=== PATIENT | female | born 1960 | race Caucasian/White ===

== ENCOUNTER 2021-01-14 13:18 | Outpatient (CLI) | payer OTHER | END 2021-01-14 13:19 | disposition home or self-care (01) | LOC: CSHRAD 13:18 | PROVIDERS: ATTEND Family Medicine | DX: R07.81 Pleurodynia (principal) | CPT/HCPCS: 71046 ==

== ENCOUNTER 2022-01-18 08:45 | Emergency (ER) | payer SELFPAY ==
[2022-01-18 09:26] LABS: #Basophils 0.1 10x3/uL (0.0-0.2); #Monocytes 1.4 10x3/uL (0.0-1.1); #Neutrophils 10.3 10x3/uL (1.5-8.4); %Basophils 0.4 % (0.0-2.0); %Eosinophils 0.3 % (0.0-6.0); %Lymphocytes 11.9 % (18.0-47.0); %Monocytes 10.4 % (0.0-10.0); %Neutrophils 76.6 % (40.0-75.0); Mean Corpuscular HGB CONC 32.5 g/dL (32.0-36.0); Mean Corpuscular Hemoglobin 30.6 pg (27.0-33.0); Mean Corpuscular Volume 94.1 fl (81.6-98.3); Mean Platelet Volume 9.2 fl (7.4-10.4); Platelet Count 223 10x3/uL (150-450); RBC Distribution Width 14.8 % (11.5-14.5); Red Blood Cell (RBC) Count 4.58 10x6/uL (3.90-5.03); White Blood Cell (WBC) Count 13.4 10x3/uL (3.5-10.5)
[2022-01-18 09:38] LABS: ALT (SGPT) 39 U/L (8-55); AST (SGOT) 86 U/L (5-34); Albumin 3.3 g/dL (3.4-4.8); Alkaline Phosphatase 286 U/L (40-110); Anion Gap 18 mmol/L (10-20); BUN (Urea Nitrogen) 7 mg/dL (9.8-20.1); Bilirubin, Total 3.6 mg/dL (0.2-1.2); CK (CPK) 19 U/L (29-168); Calc. Creatinine Clearance 0 mL/min (70-130); Calcium 9.8 mg/dL (7.8-10.44); Carbon Dioxide 23 mmol/L (23-31); Chloride 103 mmol/L (98-107); Globulin 4.2 g/dL (2.4-3.5); Glucose 129 mg/dL (80-115); Magnesium 1.8 mg/dL (1.6-2.6); Potassium 3.5 mmol/L (3.5-5.1); Protein, Total 7.5 g/dL (5.8-8.1); Sodium 140 mmol/L (136-145)
[2022-01-18] MEDS ORDERED: Enoxaparin Sodium 80 MG/0.8 ML SYRINGE ONE (10:39)
[2022-01-18 10:52] LABS: Bilirubin 1+ (Negative); Blood, Urine 10 (Negative); Clarity Slightly Cloudy (Clear); Glucose, Urine (Dipstick) Normal (Negative); Ketone, Urine 5 mg/dL (Negative); Leukocyte 100 (Negative); Nitrite Negative (Negative); Protein, Urine (Dipstick) 30 mg/dl (Neg-Trace)
[2022-01-18 10:58] LABS: Bacteria/HPF 1+ HPF (None Seen); Mucous/LPF 2+ LPF (<2+)
[2022-01-18] MEDS ORDERED: Ondansetron PF 4 MG/2 ML Vial IVP PRN (15:25)
[2022-01-18] MEDS ORDERED: Acetaminophen 325 MG TAB PO PRN (15:26)
[2022-01-18] MEDS ORDERED: Ondansetron ODT 4 MG TAB PO PRN (15:27)
[2022-01-18] MEDS ORDERED: Iopamidol 370 76% 100 ML VIAL ONE (15:47)
== END 2022-01-18 14:26 | disposition short-term general hospital (02) ==
LOC: CSHERS 08:45
DX: R00.0 Tachycardia, unspecified (principal); R18.8 Other ascites; I82.412 Acute embolism and thrombosis of left femoral vein; I82.432 Acute embolism and thrombosis of left popliteal vein; I82.442 Acute embolism and thrombosis of left tibial vein; C22.9 Malignant neoplasm of liver, not specified as primary or secondary; C78.7 Secondary malignant neoplasm of liver and intrahepatic bile duct; I10 Essential (primary) hypertension
CPT/HCPCS: 71045; 71275; 74177; 80053; 81003; 81015; 82550; 83735; 84443; 84484; 85025; 85379; 93005; J1650; Q9967

== ENCOUNTER 2022-04-14 19:09 | Inpatient (IN) | payer MEDICAID, OTHER ==
[2022-04-14 19:56] LABS: ALT (SGPT) 50 U/L (8-55); AST (SGOT) 76 U/L (5-34); Albumin 2.8 g/dL (3.4-4.8); Alkaline Phosphatase 185 U/L (40-110); Anion Gap 16 mmol/L (10-20); BUN (Urea Nitrogen) 19 mg/dL (9.8-20.1); Bilirubin, Total 4.3 mg/dL (0.2-1.2); Calc. Creatinine Clearance 0 mL/min (70-130); Carbon Dioxide 24 mmol/L (23-31); Chloride 99 mmol/L (98-107); Estimated GFR 88; Globulin 3.8 g/dL (2.4-3.5); Glucose 109 mg/dL (80-115); Lipase 10 U/L (8-78); Magnesium 1.2 mg/dL (1.6-2.6); Protein, Total 6.6 g/dL (5.8-8.1); Sodium 135 mmol/L (136-145)
[2022-04-14] MEDS ORDERED: Cefepime 2 GM VIAL ONE (20:02)
[2022-04-14 20:08] LABS: SARS-CoV-2 NAA Rapid Test DETECTED (NotDetected)
[2022-04-14] MEDS ORDERED: Lidocaine 1% (PF) 30 ML VIAL ONE (20:09)
[2022-04-14 20:10] LABS: Platelet Count 94 10x3/uL (150-450)
[2022-04-14 20:12] LABS: Hemoglobin 9.9 g/dL (12.0-15.5); Mean Corpuscular HGB CONC 33.9 g/dL (32.0-36.0); Mean Corpuscular Hemoglobin 33.2 pg (27.0-33.0); Mean Platelet Volume 9.9 fl (7.4-10.4); RBC Distribution Width 18.9 % (11.5-14.5); Red Blood Cell (RBC) Count 2.98 10x6/uL (3.90-5.03); White Blood Cell (WBC) Count 3.4 10x3/uL (3.5-10.5)
[2022-04-14 20:14] LABS: MDiff Complete? YES
[2022-04-14 20:21] LABS: Band 3 % (5-11); Lymphocytes 12 % (21-51); Monocytes 8 % (0-10); Neutrophil 77 % (42-75)
[2022-04-14 20:23] LABS: Anisocytosis SLIGHT = 6-15 cells (100X) (0-5/hpf); Hypochromia SLIGHT = 6-15 cells (100X) (0-5/hpf); Macrocytosis SLIGHT = 6-15 cells (100X) (0-5/hpf); Poikilocytosis SLIGHT = 6-15 cells (100X) (0-5/hpf)
[2022-04-14 20:24] LABS: Platelet Morphology Comment Appears Decreased
[2022-04-14 21:27] LABS: BF Color Red; Body Fluid Source Ascites Body Fluid; Clarity Hazy (Clear); Tube # EDTA
[2022-04-14 21:31] LABS: BF Segmented Neutrophils 69 %; Cell Count Non Hematic 21 %; Lymphocytes 10 %
[2022-04-14] MEDS ORDERED: Dexamethasone 10 MG/ML VIAL ONE (22:16)
[2022-04-14] MEDS ORDERED: Enoxaparin Sodium 80 MG/0.8 ML SYRINGE ONE (22:16)
[2022-04-14 22:28] LABS: Lactic Acid 2.9 mmol/L (0.5-2.2)
[2022-04-14] MEDS ORDERED: Lorazepam 2 MG/ML VIAL ONE (23:05)
[2022-04-14] MEDS ORDERED: Ketorolac Tromethamine 30 MG/ML VIAL ONE (23:34)
[2022-04-14] MEDS ORDERED: Senokot S 8.6-50 MG TAB PO PRN (23:55)
[2022-04-14] MEDS ORDERED: Acetaminophen 325 MG TAB PO PRN (23:55)
[2022-04-14] MEDS ORDERED: Ondansetron PF 4 MG/2 ML Vial IVP PRN (23:55)
[2022-04-14] MEDS ORDERED: Calcium Carbonate 500 MG ChewTAB PO PRN (23:55)
[2022-04-15] MEDS ORDERED: Ventolin HFA Inhaler 60 PUFF INHALER INH PRN (00:01)
[2022-04-15] MEDS ORDERED: [UNRECOGNIZED DRUG - REMARK] IVPB PRN (00:04)
[2022-04-15] MEDS ORDERED: Furosemide 20 MG/2 ML VIAL SLOW IVP SCH (00:15)
[2022-04-15] MEDS ORDERED: Magnesium 2 GM/50 ML(in water) 2 GM in Premix Bag 1 BAG IVPB SCH ×2 (00:15→08:15)
[2022-04-15 00:59] LABS: CKMB 2.4 ng/mL (0-6.6)
[2022-04-15 02:51] VITALS: BMI 30.1
[2022-04-15 03:31] LABS: Bilirubin 3+ (Negative); Blood, Urine 250 (Negative); Clarity Cloudy (Clear); Glucose, Urine (Dipstick) 50 mg/dL (Negative); Ketone, Urine 5 mg/dL (Negative); Leukocyte 25 (Negative); Nitrite Positive (Negative); Protein, Urine (Dipstick) 100 mg/dl (Neg-Trace); Specific Gravity, Urine 1.025 (1.002-1.036)
[2022-04-15 03:41] LABS: Bacteria/HPF 3+ HPF (None Seen); RBC/HPF Greater than 50 HPF (0-3); Squamous Epithelial 0-3 HPF (0-3)
[2022-04-15 03:42] LABS: Legionella Urinary Ag Negative (Negative); Strep pneumo Urine Ag NEGATIVE (NEGATIVE)
[2022-04-15 04:42] LABS: Hemoglobin 8.7 g/dL (12.0-15.5); Mean Corpuscular HGB CONC 33.5 g/dL (32.0-36.0); Mean Corpuscular Hemoglobin 33.6 pg (27.0-33.0); Mean Corpuscular Volume 100.4 fl (81.6-98.3); Mean Platelet Volume 9.6 fl (7.4-10.4); Platelet Count 44 10x3/uL (150-450); RBC Distribution Width 18.8 % (11.5-14.5); Red Blood Cell (RBC) Count 2.59 10x6/uL (3.90-5.03); White Blood Cell (WBC) Count 3.8 10x3/uL (3.5-10.5)
[2022-04-15 04:43] LABS: Lactic Acid 1.8 mmol/L (0.5-2.2)
[2022-04-15 04:51] LABS: ALT (SGPT) 40 U/L (8-55); AST (SGOT) 57 U/L (5-34); Albumin 2.4 g/dL (3.4-4.8); Alkaline Phosphatase 147 U/L (40-110); Anion Gap 14 mmol/L (10-20); BUN (Urea Nitrogen) 21 mg/dL (9.8-20.1); Bilirubin, Total 3.5 mg/dL (0.2-1.2); CRP (Inflammatory) 7.79 mg/dL (= or < 0.5); Calc. Creatinine Clearance 107 mL/min (70-130); Calcium 8.4 mg/dL (7.8-10.44); Carbon Dioxide 25 mmol/L (23-31); Cardiac Risk 12.8 (Less than 4.5); Chloride 101 mmol/L (98-107); Cholesterol 179 mg/dl (< 200 Desired); Estimated GFR 86; Globulin 3.5 g/dL (2.4-3.5); Glucose 129 mg/dL (80-115); HDL Cholesterol 14 mg/dL (>60 Neg Risk); LDL Cholesterol, Calculated 152 mg/dL; Magnesium 1.6 mg/dL (1.6-2.6); Protein, Total 5.9 g/dL (5.8-8.1); Sodium 136 mmol/L (136-145); Triglycerides 65 mg/dL (Less than 150)
[2022-04-15 05:14] LABS: CKMB 3.4 ng/mL (0-6.6)
[2022-04-15 06:04] LABS: MDiff Complete? YES
[2022-04-15 06:19] LABS: Band 4 % (5-11); Lymphocytes 6 % (21-51); Monocytes 5 % (0-10); Neutrophil 85 % (42-75)
[2022-04-15 06:20] LABS: Anisocytosis SLIGHT = 6-15 cells (100X) (0-5/hpf); Hypochromia SLIGHT = 6-15 cells (100X) (0-5/hpf); Platelet Morphology Comment Appears Decreased; Spherocytes SLIGHT = 1-5 cells (100X) (None Seen)
[2022-04-15] MEDS ORDERED: Enoxaparin Sodium 80 MG/0.8 ML SYRINGE SC SCH (09:00)
[2022-04-15] MEDS: Dexamethasone 4 mg/ml Vial SLOW IVP SCH (09:21)
[2022-04-15] MEDS: Pantoprazole 40 MG VIAL IVP SCH ×2 (09:21→20:10)
[2022-04-15] MEDS: Furosemide 40 MG TAB PO SCH (09:21)
[2022-04-15] MEDS: Spironolactone 25 MG TAB PO SCH (09:21)
[2022-04-15] MEDS: Cefepime 1 GM in Sodium Chloride 0.9% 100 ML IVPB SCH ×2 (09:23→20:10)
[2022-04-15] MEDS ORDERED: Iopamidol 370 76% 100 ML VIAL ONE (13:21)
[2022-04-15] MEDS: Propranolol 40 MG TAB PO SCH ×2 (16:42→20:10)
[2022-04-16] MEDS: Furosemide 40 MG TAB PO SCH (08:00)
[2022-04-16] MEDS: Propranolol 40 MG TAB PO SCH ×2 (08:00→20:44)
[2022-04-16] MEDS: Spironolactone 25 MG TAB PO SCH (08:01)
[2022-04-16] MEDS: Pantoprazole 40 MG VIAL IVP SCH ×2 (08:01→20:44)
[2022-04-16] MEDS: Cefepime 1 GM in Sodium Chloride 0.9% 100 ML IVPB SCH (08:01)
[2022-04-16] MEDS: Dexamethasone 4 mg/ml Vial SLOW IVP SCH (08:01)
[2022-04-16 08:39] LABS: Hemoglobin 10.4 g/dL (12.0-15.5); Mean Corpuscular HGB CONC 34.7 g/dL (32.0-36.0); Mean Corpuscular Hemoglobin 34.2 pg (27.0-33.0); Mean Corpuscular Volume 98.7 fl (81.6-98.3); Mean Platelet Volume 10.9 fl (7.4-10.4); Platelet Count 66 10x3/uL (150-450); Red Blood Cell (RBC) Count 3.04 10x6/uL (3.90-5.03); White Blood Cell (WBC) Count 29.8 10x3/uL (3.5-10.5)
[2022-04-16 08:44] LABS: MDiff Complete? YES; Manual Diff?? YES
[2022-04-16 08:52] LABS: Anion Gap 15 mmol/L (10-20); BUN (Urea Nitrogen) 27 mg/dL (9.8-20.1); Calc. Creatinine Clearance 98 mL/min (70-130); Carbon Dioxide 25 mmol/L (23-31); Chloride 100 mmol/L (98-107); Estimated GFR 79; Glucose 125 mg/dL (80-115); Magnesium 1.9 mg/dL (1.6-2.6); Sodium 136 mmol/L (136-145)
[2022-04-16 09:04] LABS: Band 29 % (5-11); Lymphocytes 2 % (21-51); Monocytes 3 % (0-10); Neutrophil 66 % (42-75)
[2022-04-16 09:05] LABS: Platelet Morphology Comment Appears Decreased
[2022-04-16 09:06] LABS: Anisocytosis SLIGHT = 6-15 cells (100X) (0-5/hpf); Dohle Bodies SLIGHT; Hypochromia SLIGHT = 6-15 cells (100X) (0-5/hpf); Macrocytosis SLIGHT = 6-15 cells (100X) (0-5/hpf); Microcytosis SLIGHT = 6-15 cells (100X) (0-5/hpf); Target Cells SLIGHT = 2-5 cells (100X) (0-1/hpf); Toxic Granulation SLIGHT; Vacuoles SLIGHT
[2022-04-16] MEDS ORDERED: Sodium Bicarbonate 2.5 MEQ/5 ML VIAL ONE (11:11)
[2022-04-16] MEDS ORDERED: Lidocaine 1% PF 5 ML VIAL ONE (11:11)
[2022-04-16] MEDS: cefTRIAXone\\ROCEPHIN 1 GM in Sodium Chloride 0.9% 100 ML IVPB SCH (14:42)
[2022-04-16] MEDS: Azithromycin 500 MG in Sodium Chloride 0.9% 250 ML 250 ML IVPB SCH (15:13)
[2022-04-16] MEDS: Cholecalciferol 1,000 UNITS (25 MCG) TAB PO SCH (20:44)
[2022-04-16] MEDS ORDERED: traZODone HCl 150 MG TAB PO SCH (21:00)
[2022-04-17 05:01] LABS: Anion Gap 13 mmol/L (10-20); BUN (Urea Nitrogen) 28 mg/dL (9.8-20.1); Calc. Creatinine Clearance 107 mL/min (70-130); Calcium 8.6 mg/dL (7.8-10.44); Carbon Dioxide 25 mmol/L (23-31); Chloride 102 mmol/L (98-107); Estimated GFR 88; Glucose 131 mg/dL (80-115); Magnesium 1.7 mg/dL (1.6-2.6); Potassium 3.9 mmol/L (3.5-5.1); Sodium 136 mmol/L (136-145)
[2022-04-17 05:52] LABS: Hemoglobin 8.7 g/dL (12.0-15.5); Mean Corpuscular HGB CONC 33.7 g/dL (32.0-36.0); Mean Corpuscular Hemoglobin 33.1 pg (27.0-33.0); Mean Corpuscular Volume 98.1 fl (81.6-98.3); Mean Platelet Volume 11.4 fl (7.4-10.4); Platelet Count 30 10x3/uL (150-450); RBC Distribution Width 18.7 % (11.5-14.5); Red Blood Cell (RBC) Count 2.63 10x6/uL (3.90-5.03); White Blood Cell (WBC) Count 15.3 10x3/uL (3.5-10.5)
[2022-04-17 06:28] LABS: MDiff Complete? YES
[2022-04-17 07:01] LABS: Band 10 % (5-11); Lymphocytes 3 % (21-51); Monocytes 6 % (0-10); Neutrophil 81 % (42-75)
[2022-04-17 07:02] LABS: Platelet Morphology Comment Appears Decreased; RBC Morphology Normal
[2022-04-17] MEDS: Propranolol 40 MG TAB PO SCH ×2 (08:12→21:39)
[2022-04-17] MEDS: Spironolactone 25 MG TAB PO SCH (08:12)
[2022-04-17] MEDS: Dexamethasone 4 mg/ml Vial SLOW IVP SCH (08:13)
[2022-04-17] MEDS: Zinc Sulfate 220 MG CAP PO SCH (08:13)
[2022-04-17] MEDS: Furosemide 40 MG TAB PO SCH (08:13)
[2022-04-17] MEDS: Ascorbic Acid 500 mg Chewable Tablet PO SCH (08:13)
[2022-04-17] MEDS: Pantoprazole 40 MG VIAL IVP SCH ×2 (08:15→21:39)
[2022-04-17] MEDS: cefTRIAXone\\ROCEPHIN 1 GM in Sodium Chloride 0.9% 100 ML IVPB SCH (13:50)
[2022-04-17] MEDS: Azithromycin 500 MG in Sodium Chloride 0.9% 250 ML 250 ML IVPB SCH (15:13)
[2022-04-17] MEDS: Cholecalciferol 1,000 UNITS (25 MCG) TAB PO SCH (21:39)
[2022-04-17] MEDS: Melatonin 3 MG TAB PO PRN (21:39)
[2022-04-18] MEDS ORDERED: Guaifenesin DM 100-10/5 ML UDCUP ONE (09:30)
[2022-04-18] MEDS: Dexamethasone 4 mg/ml Vial SLOW IVP SCH (09:31)
[2022-04-18] MEDS: Pantoprazole 40 MG VIAL IVP SCH ×2 (09:31→21:14)
[2022-04-18] MEDS: Spironolactone 25 MG TAB PO SCH (09:32)
[2022-04-18] MEDS: Ascorbic Acid 500 mg Chewable Tablet PO SCH (09:32)
[2022-04-18] MEDS: Zinc Sulfate 220 MG CAP PO SCH (09:32)
[2022-04-18] MEDS: Propranolol 40 MG TAB PO SCH ×2 (09:32→21:14)
[2022-04-18] MEDS: Furosemide 40 MG TAB PO SCH (09:32)
[2022-04-18] MEDS: Guaifenesin DM 100-10/5 ML UDCUP PO PRN (09:38)
[2022-04-18] MEDS: cefTRIAXone\\ROCEPHIN 1 GM in Sodium Chloride 0.9% 100 ML IVPB SCH (14:02)
[2022-04-18] MEDS: Azithromycin 500 MG in Sodium Chloride 0.9% 250 ML 250 ML IVPB SCH (14:03)
[2022-04-18] MEDS: Melatonin 3 MG TAB PO PRN (21:14)
[2022-04-18] MEDS: Cholecalciferol 1,000 UNITS (25 MCG) TAB PO SCH (21:14)
[2022-04-19 04:52] LABS: #Neutrophils 9.1 10x3/uL (1.5-8.4); %Basophils 0.1 % (0.0-2.0); %Lymphocytes 6.6 % (18.0-47.0); %Monocytes 8.9 % (0.0-10.0); %Neutrophils 83.4 % (40.0-75.0); Anion Gap 14 mmol/L (10-20); BUN (Urea Nitrogen) 33 mg/dL (9.8-20.1); Calc. Creatinine Clearance 112 mL/min (70-130); Calcium 8.7 mg/dL (7.8-10.44); Carbon Dioxide 25 mmol/L (23-31); Chloride 103 mmol/L (98-107); Estimated GFR 95; Glucose 113 mg/dL (80-115); Hemoglobin 9.7 g/dL (12.0-15.5); Mean Corpuscular HGB CONC 34.2 g/dL (32.0-36.0); Mean Corpuscular Hemoglobin 33.2 pg (27.0-33.0); Mean Corpuscular Volume 97.3 fl (81.6-98.3); Mean Platelet Volume 11.3 fl (7.4-10.4); Potassium 3.7 mmol/L (3.5-5.1); RBC Distribution Width 18.9 % (11.5-14.5); Red Blood Cell (RBC) Count 2.92 10x6/uL (3.90-5.03); Sodium 138 mmol/L (136-145); White Blood Cell (WBC) Count 10.9 10x3/uL (3.5-10.5)
[2022-04-19 04:53] LABS: Platelet Count 52 10x3/uL (150-450)
[2022-04-19 05:43] LABS: Band 3 % (5-11); Lymphocytes 5 % (21-51); Monocytes 6 % (0-10)
[2022-04-19 05:45] LABS: Neutrophil 86 % (42-75); Platelet Morphology Comment Appears Decreased; RBC Morphology Normal
[2022-04-19] MEDS: Dexamethasone 4 mg/ml Vial SLOW IVP SCH (09:32)
[2022-04-19] MEDS: Spironolactone 25 MG TAB PO SCH (09:33)
[2022-04-19] MEDS: Zinc Sulfate 220 MG CAP PO SCH (09:33)
[2022-04-19] MEDS: Ascorbic Acid 500 mg Chewable Tablet PO SCH (09:33)
[2022-04-19] MEDS: Pantoprazole 40 MG VIAL IVP SCH ×2 (09:33→20:45)
[2022-04-19] MEDS: Furosemide 40 MG TAB PO SCH (09:33)
[2022-04-19] MEDS: Propranolol 40 MG TAB PO SCH ×2 (09:33→20:47)
[2022-04-19] MEDS: cefTRIAXone\\ROCEPHIN 1 GM in Sodium Chloride 0.9% 100 ML IVPB SCH (14:43)
[2022-04-19] MEDS: Azithromycin 500 MG in Sodium Chloride 0.9% 250 ML 250 ML IVPB SCH (16:32)
[2022-04-19] MEDS: Cholecalciferol 1,000 UNITS (25 MCG) TAB PO SCH (20:47)
[2022-04-19] MEDS: Melatonin 3 MG TAB PO PRN (20:47)
[2022-04-20 06:13] LABS: Anion Gap 14 mmol/L (10-20); BUN (Urea Nitrogen) 34 mg/dL (9.8-20.1); Calc. Creatinine Clearance 107 mL/min (70-130); Calcium 8.6 mg/dL (7.8-10.44); Carbon Dioxide 23 mmol/L (23-31); Chloride 104 mmol/L (98-107); Estimated GFR 91; Glucose 140 mg/dL (80-115); Potassium 4.4 mmol/L (3.5-5.1); Sodium 137 mmol/L (136-145)
[2022-04-20 06:26] LABS: Hemoglobin 10.8 g/dL (12.0-15.5); Mean Corpuscular Hemoglobin 35.3 pg (27.0-33.0); Mean Platelet Volume 11.5 fl (7.4-10.4); Platelet Count 81 10x3/uL (150-450); RBC Distribution Width 20.5 % (11.5-14.5); Red Blood Cell (RBC) Count 3.06 10x6/uL (3.90-5.03); White Blood Cell (WBC) Count 8.6 10x3/uL (3.5-10.5)
[2022-04-20 07:30] LABS: MDiff Complete? YES
[2022-04-20 08:10] LABS: Nucleated RBC 1 % (0)
[2022-04-20 08:35] LABS: Lymphocytes 8 % (21-51); Monocytes 10 % (0-10); Neutrophil 81 % (42-75); Reactive Lymphocytes 1 % (0-10)
[2022-04-20] MEDS: Ascorbic Acid 500 mg Chewable Tablet PO SCH (08:37)
[2022-04-20] MEDS: Furosemide 40 MG TAB PO SCH (08:37)
[2022-04-20] MEDS: Spironolactone 25 MG TAB PO SCH (08:37)
[2022-04-20] MEDS: Propranolol 40 MG TAB PO SCH ×2 (08:37→21:04)
[2022-04-20 08:38] LABS: Platelet Morphology Comment Appears Decreased
[2022-04-20] MEDS: Pantoprazole 40 MG VIAL IVP SCH ×2 (08:38→21:09)
[2022-04-20] MEDS: Zinc Sulfate 220 MG CAP PO SCH (08:38)
[2022-04-20] MEDS: Dexamethasone 4 mg/ml Vial SLOW IVP SCH (08:38)
[2022-04-20] MEDS: cefTRIAXone\\ROCEPHIN 1 GM in Sodium Chloride 0.9% 100 ML IVPB SCH (15:02)
[2022-04-20] MEDS: Cholecalciferol 1,000 UNITS (25 MCG) TAB PO SCH (21:04)
[2022-04-20] MEDS: Melatonin 3 MG TAB PO PRN (21:08)
[2022-04-21 05:22] LABS: Anion Gap 11 mmol/L (10-20); BUN (Urea Nitrogen) 35 mg/dL (9.8-20.1); Calc. Creatinine Clearance 119 mL/min (70-130); Calcium 8.8 mg/dL (7.8-10.44); Carbon Dioxide 28 mmol/L (23-31); Chloride 103 mmol/L (98-107); Estimated GFR 99; Glucose 117 mg/dL (80-115); Potassium 3.9 mmol/L (3.5-5.1); Sodium 138 mmol/L (136-145)
[2022-04-21 05:31] LABS: Hemoglobin 11.1 g/dL (12.0-15.5); Mean Corpuscular HGB CONC 34.8 g/dL (32.0-36.0); Mean Corpuscular Hemoglobin 34.7 pg (27.0-33.0); Mean Corpuscular Volume 99.7 fl (81.6-98.3); Mean Platelet Volume 10.7 fl (7.4-10.4); Platelet Count 102 10x3/uL (150-450); RBC Distribution Width 21.2 % (11.5-14.5); White Blood Cell (WBC) Count 8.2 10x3/uL (3.5-10.5)
[2022-04-21 07:23] LABS: MDiff Complete? YES
[2022-04-21 07:25] LABS: Band 3 % (5-11); Lymphocytes 8 % (21-51); Metamyelocyte 2 % (0-0); Monocytes 13 % (0-10); Neutrophil 74 % (42-75); Nucleated RBC 2 % (0)
[2022-04-21 07:26] LABS: Platelet Morphology Comment Appears Decreased
[2022-04-21] MEDS: Ascorbic Acid 500 mg Chewable Tablet PO SCH (11:30)
[2022-04-21] MEDS: Furosemide 40 MG TAB PO SCH (11:31)
[2022-04-21] MEDS: Propranolol 40 MG TAB PO SCH (11:31)
[2022-04-21] MEDS: Spironolactone 25 MG TAB PO SCH (11:31)
[2022-04-21] MEDS: Zinc Sulfate 220 MG CAP PO SCH (11:31)
[2022-04-21] MEDS: Pantoprazole 40 MG VIAL IVP SCH (11:31)
[2022-04-21] MEDS: Guaifenesin DM 100-10/5 ML UDCUP PO PRN (11:40)
[2022-04-21 16:31] VITALS: BP 130/66; TEMP 98.2
== END 2022-04-21 19:17 | DRG 432 ==
LOC: CSHERS 19:09 → CSHIMCU 21:46 → UNDOADMIN 04-15 02:47 → CSHIMCU 04-15 02:47 → CSHTELE 04-17 17:51
PROVIDERS: ADMIT Student in an Organized Health Care Education/Training Program; ATTEND Hospitalist
PROC: 0W9G3ZX Drainage of Peritoneal Cavity, Percutaneous Approach, Diagnostic (ICD-10-PCS; principal; 2022-04-14)
PROC: 8E0ZXY6 Isolation (ICD-10-PCS; 2022-04-14)
PROC: 5A09357 Assistance with Respiratory Ventilation, Less than 24 Consecutive Hours, Continuous Positive Airway Pressure (ICD-10-PCS; 2022-04-15)
PROC: 0W9G3ZZ Drainage of Peritoneal Cavity, Percutaneous Approach (ICD-10-PCS; 2022-04-16)
DX: K70.31 Alcoholic cirrhosis of liver with ascites (principal); U07.1 COVID-19; J96.01 Acute respiratory failure with hypoxia; G93.41 Metabolic encephalopathy; D61.810 Antineoplastic chemotherapy induced pancytopenia; I21.A1 Myocardial infarction type 2; J15.9 Unspecified bacterial pneumonia; J12.82 Pneumonia due to coronavirus disease 2019; K76.6 Portal hypertension; R65.10 Systemic inflammatory response syndrome (SIRS) of non-infectious origin without acute organ dysfunction; E87.2 Acidosis; C22.1 Intrahepatic bile duct carcinoma; C79.51 Secondary malignant neoplasm of bone; I85.00 Esophageal varices without bleeding; J91.0 Malignant pleural effusion; I82.511 Chronic embolism and thrombosis of right femoral vein; J98.11 Atelectasis; I10 Essential (primary) hypertension; K21.9 Gastro-esophageal reflux disease without esophagitis; E80.6 Other disorders of bilirubin metabolism; D63.0 Anemia in neoplastic disease; E83.42 Hypomagnesemia; G47.00 Insomnia, unspecified; R16.1 Splenomegaly, not elsewhere classified; Z88.0 Allergy status to penicillin; Z98.890 Other specified postprocedural states; Z79.01 Long term (current) use of anticoagulants; Z79.899 Other long term (current) drug therapy
CPT/HCPCS: 36415; 49083; 70450; 71045; 71275; 80048; 80053; 80061; 81001; 82140; 82553; 82607; 82945; 83605; 83690; 83735; 83880; 84145; 84484; 85025; 85379; 86140; 87040; 87070; 87086; 87205; 87449; 87899; 88112; 89051; 93005; 93306; 93970; 94660; 94664; 94760; 96372; 96374; 96375; C9113; J0456; J0692; J0696; J1100; J1650; J1885; J1940; J2001; J2060; J3370; J3475; J3490; J7050; Q9967; U0002